=== PATIENT | male | born 1945 | race African-American/Black ===

== ENCOUNTER 2017-01-18 09:35 | Inpatient (IN) | payer MEDICARE, OTHER ==
--- NOTE | 2017-01-18 10:22 | ER Document Report ---
ED Dizziness/Weakness - General Chief Complaint: General Weakness Stated Complaint: WEAKNESS Notes: Patient was in his normal medical condition yesterday, but says he felt some difficulty going to sleep last night. He awakened about 4 AM to go to the bathroom and when he returned to bed, he felt weak and "drawn". He was able to return to sleep and awakened at 8 AM, but found he "couldn't move". He wasn't able to help himself sit up in bed and he wasn't able to stand. Patient has had previous four strokes. He has slow speech, but can function and is able to walk without assistance normally. He currently feels weak all over and not on just one side of his body. Patient denies any pains anywhere. Specifically, patient denies any headache, chest pain, or abdominal pain he's not had any vomiting or diarrhea. Has not been ill recently. Denies any UTI symptoms. Denies any cough or cold or chest congestion or shortness of breath. No fevers. Patient's was not present during his initial evaluation. After her arrival , she expressed concerned about patient's weakness, because this is not normal for him. Additionally, she says that his speech is very deliberate and somewhat slurred which is also not normal for him. Patient is not on any sedating medications such his meds for sleep, pain, etc. 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 Patient is blind in the right eye Review of Systems - Review of Systems Notes: REVIEW OF SYSTEMS: CONSTITUTIONAL : Denies fever. Complains of generalized weakness. EENT: Denies eye, ear, nose or mouth or throat pain or other symptoms. CARDIOVASCULAR: Denies chest pain. RESPIRATORY: Denies cough, chest congestion, or shortness of breath. GASTROINTESTINAL: Denies abdominal pain or nausea, vomiting, or diarrhea. GENITOURINARY: Denies difficulty or painful urinating, urinary frequency, blood in urine. MUSCULOSKELETAL: Denies back or neck pain. Denies joint pain or swelling. SKIN: Denies rash or skin lesions. NEUROLOGICAL: Denies LOC or altered mental status. Denies headache. Denies new or different sensory loss or motor deficits. ALL OTHER SYSTEMS REVIEWED AND NEGATIVE. Physical Exam - Vital signs Vitals: Resp 24 H 01/18/17 09:36 Interpretation: Normal, Hypertensive - Mild at 155/89.. No: Tachycardic, Hypoxic, Febrile - Notes Notes: PHYSICAL EXAMINATION: GENERAL: Well-appearing, in no acute distress. Vital signs essentially normal with only minimal hypertension. Answers questions very slowly and deliberately , but appropriately. Denies any pains anywhere. HEAD: Atraumatic, normocephalic. EYES: Patient is blind in right eye secondary to detached retina. NECK: Normal range of motion, supple. No carotid bruits heard. LUNGS: Breath sounds clear and equal bilaterally. HEART: Regular rate and rhythm without murmurs. ABDOMEN: Soft, nontender. No guarding or rebound. BACK: No tenderness throughout entire back. EXTREMITIES: Normal range of motion without pain. Moves all 4 extremities, although limited and weak. NEUROLOGICAL: Speech is slow and deliberate but understandable. Gait not tested. Can move all 4 extremities, although limited in week appearing. Awake , alert, and oriented x3. PSYCH: Normal mood, normal affect. SKIN: Warm, dry, no rashes. Course - Re-evaluation Re-evalutation: 01/18/17 12:06 Patient's labs are all essentially normal. CT scan of the brain is normal. Chest x-ray normal. No evidence of infection. Patient has persistent generalized weakness. I have spoken to the hospitalist, who will see the patient to consider admission for further evaluation. 01/18/17 12:39 Dr. Hallman will admit the patient to [facility] for observation. - Vital Signs Vital signs: Temp Pulse Resp BP Pulse Ox 21 H 140/101 H 100 01/18/17 12:31 01/18/17 12:31 01/18/17 12:31 - Laboratory Result Diagrams: 01/18/17 10:17 01/18/17 10:17 Laboratory results interpreted by de: 01/18/17 01/18/17 01/18/17 10:17 10:17 10:17 Hgb 11.8 L MCV 72 L MCH 22.4 L MCHC 31.2 L RDW 14.9 H Monocytes % 13.1 H APTT 22.0 L Sodium 136.9 L Glucose 285 H Direct Bilirubin 0.5 H Urine Protein Urine Glucose (UA) 01/18/17 11:22 Hgb MCV MCH MCHC RDW Monocytes % APTT Sodium Glucose Direct Bilirubin Urine Protein 30 H Urine Glucose (UA) >=500 H - Diagnostic Test Radiology reviewed: Image reviewed, Reports reviewed - CT scan of the brain reveals microvascular ischemia and atrophy. No acute injury. Radiology results interpreted by de: 01/18/17 12:05 Chest x-ray is normal. - EKG Interpretation by Tn EKG shows normal: Sinus rhythm - At 85. Rate: Normal Rhythm: NSR Additional EKG results interpreted by de: 01/18/17 10:31 EKG is normal without any acute changes. Discharge - Discharge Clinical Impression: Generalized weakness, Slurring of speech Admitting Provider: Hospitalist Unit Admitted: IMCU Referrals: LINDA CREWS MD [Primary Care Provider] - Follow up as needed
[2017-01-18 10:42] LABS: PROTHROMBIN TIME 12.2 SEC (11.4-15.4)
[2017-01-18 10:57] LABS: ABSOLUTE BASOPHILS # (AUTO) 0.1 10^3/uL (0.0-0.2); ABSOLUTE EOSINOPHILS # (AUTO) 0.2 10^3/uL (0.0-0.6); ABSOLUTE MONOCYTES (AUTO) 0.8 10^3/uL (0.1-1.4); ABSOLUTE NEUT (AUTO) 3.2 10^3/uL (1.7-8.2); BASOPHILS % (AUTO) 0.8 % (0-2); EOSINOPHILS % (AUTO) 2.5 % (0-6); HEMATOCRIT 37.9 % (37.9-51.0); HEMOGLOBIN 11.8 g/dL (13.5-17.0); HGB HCT DIFFERENCE -2.5; LYMPHOCYTES % (AUTO) 31.8 % (13-45); MEAN CORPUSCULAR HEMOGLOBIN 22.4 pg (27.0-33.4); MEAN CORPUSCULAR HGB CONC 31.2 g/dL (32.0-36.0); MEAN CORPUSCULAR VOLUME 72 fl (80-97); MONOCYTES % (AUTO) 13.1 % (3-13); RED BLOOD COUNT 5.28 10^6/uL (4.35-5.55); RED CELL DISTRIBUTION WIDTH 14.9 % (11.5-14.0); SEGMENTED NEUTROPHILS % (AUTO) 51.8 % (42-78); WHITE BLOOD COUNT 6.2 10^3/uL (4.0-10.5)
[2017-01-18 11:11] LABS: ALBUMIN 3.6 g/dL (3.5-5.0); ANION GAP 12 (5-19); BILIRUBIN,DIRECT 0.5 mg/dL (0.0-0.4); BILIRUBIN,TOTAL 0.8 mg/dL (0.2-1.3); BLOOD UREA NITROGEN 10 mg/dL (7-20); CALCIUM 9.2 mg/dL (8.4-10.2); CARBON DIOXIDE 24 mmol/L (22-30); CHLORIDE 101 mmol/L (98-107); CREATINE KINASE 148 U/L (55-170); CREATININE RESULT 0.63 mg/dL (0.52-1.25); GLUCOSE 285 mg/dL (75-110); SODIUM 136.9 mmol/L (137-145); TOTAL PROTEIN 7.5 g/dL (6.3-8.2)
[2017-01-18 11:12] LABS: CREATINE KINASE MB 1.51 ng/mL (<4.55)
[2017-01-18 11:13] LABS: TROPONIN I < 0.012 ng/mL
[2017-01-18 11:14] LABS: ALKALINE PHOSPHATASE 92 U/L (38-126); ASPARTATE AMINO TRANSFERASE 30 U/L (17-59)
[2017-01-18 11:15] LABS: ALANINE AMINOTRANSFERASE 29 U/L (21-72); POTASSIUM 3.9 mmol/L (3.6-5.0)
[2017-01-18 11:57] LABS: APPEARANCE,URINE CLEAR; BILIRUBIN,URINE NEGATIVE (NEGATIVE); GLUCOSE, URINE >=500 mg/dL (NEGATIVE); KETONES,URINE NEGATIVE (NEGATIVE); LEUKOCYTE ESTERASE,URINE NEGATIVE (NEGATIVE); NITRITE,URINE NEGATIVE (NEGATIVE); PROTEIN,URINE 30 mg/dL (NEGATIVE); URINE SPECIFIC GRAVITY 1.017; UROBILINOGEN,URINE NEGATIVE mg/dL (<2.0)
[2017-01-18 12:42] LABS: URINE BARBITURATES SCREEN NEGATIVE; URINE METHADONE SCREEN NEGATIVE; URINE OPIATES LOW NEGATIVE; URINE PHENCYCLIDINE SCREEN NEGATIVE
[2017-01-18] MEDS ORDERED: ONDANSETRON HCL INJ/PF 4 MG/2 ML SDV IV PRN (12:53)
[2017-01-18] MEDS ORDERED: ACETAMINOPHEN 325 MG TABLET PO PRN (12:53)
[2017-01-18] MEDS ORDERED: DEXTROSE 40% GEL 15 GM TUBE PO PRN ×2 (12:59)
[2017-01-18] MEDS ORDERED: DEXTROSE 50%-WATER 25 GM/50 ML DISP.SYRIN IV PRN ×2 (12:59)
[2017-01-18] MEDS ORDERED: GLUCAGON,HUMAN RECOMB 1 MG INJ IM PRN (12:59)
--- NOTE | 2017-01-18 13:13 | PDOC H&P ---
History of Present Illness Admission Date/PCP: 01/18/17 12:52 LINDA CREWS MD Patient complains of: Right-sided weakness History of Present Illness: KERRIE PECK is a 71 year old male with a history of previous CVA who reports he woke up about 4 AM this morning and went to the bathroom. He reported he felt weak on the right side slightly but went back to bed. When he woke up again at 8 AM he said he could not move his right side at all and he had some dysarthria. He woke up his who helped him sit on the edge the bed and had urinary incontinence. The patient reports that he has had improvement in the weakness on his right arm but it's still not back to normal. He continues with weakness in his right leg. He has had some dysarthria but denies any dysphagia. Denies any visual loss. 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 The patient also has some numbness in his right leg but not in the right arm. The patient reports his blood sugars have been good and he has not had any low blood sugars. Patient is on aspirin and Plavix and has been compliant with his medications. The patient reports that they've moved here from [place] about 5 months ago and are seeing Dr. barbara Crews. 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 Patient is blind in the right eye Social History Information Source: Patient Lives with: Spouse/Significant other Smoking Status: Former Smoker Frequency of Alcohol Use: Rare Hx Recreational Drug Use: No Drugs: None Hx Prescription Drug Abuse: No - Advance Directive Resuscitation Status: Full Code Surrogate healthcare decision maker:: His Family History Family History: Father at a 75. He is uncertain as to the cause of his . his mother is 105 years old and alive and healthy. Parental Family History Reviewed: Yes Children Family History Reviewed: No Sibling(s) Family History Reviewed.: No Medication/Allergy Allergies/Adverse Reactions: No Known Allergies Allergy (Unverified 01/18/17 09:52) Review of Systems Constitutional: ABSENT: chills, fever(s), headache(s), weight gain, weight loss Eyes: PRESENT: visual disturbances - No visual loss other than his baseline right eye blindness Ears: ABSENT: hearing changes Cardiovascular: ABSENT: chest pain, dyspnea on exertion, edema, orthropnea, palpitations Respiratory: ABSENT: cough, hemoptysis Gastrointestinal: ABSENT: abdominal pain, constipation, diarrhea, hematemesis, hematochezia, nausea, vomiting Genitourinary: ABSENT: dysuria, hematuria Musculoskeletal: ABSENT: joint swelling Integumentary: ABSENT: rash, wounds Neurological: PRESENT: as per HPI Psychiatric: ABSENT: anxiety, depression Endocrine: ABSENT: cold intolerance, heat intolerance, polydipsia, polyuria Hematologic/Lymphatic: ABSENT: easy bleeding, easy bruising Physical Exam Vital Signs: Temp Pulse Resp BP Pulse Ox 21 H 140/101 H 100 01/18/17 12:31 01/18/17 12:31 01/18/17 12:31 General appearance: PRESENT: no acute distress, obese Head exam: PRESENT: atraumatic, normocephalic Eye exam: PRESENT: conjunctiva pink, EOMI, PERRLA, other - Right eye is cloudy. ABSENT: scleral icterus Ear exam: PRESENT: normal external ear exam Mouth exam: PRESENT: moist, tongue midline Neck exam: ABSENT: carotid bruit, JVD, lymphadenopathy, thyromegaly Respiratory exam: PRESENT: clear to auscultation david. ABSENT: rales, rhonchi, wheezes Cardiovascular exam: PRESENT: RRR. ABSENT: diastolic murmur, rubs, systolic murmur GI/Abdominal exam: PRESENT: normal bowel sounds, soft. ABSENT: distended, guarding, mass, organolmegaly, rebound, tenderness Rectal exam: PRESENT: deferred Extremities exam: ABSENT: calf tenderness, clubbing, pedal edema Neurological exam: PRESENT: alert, awake, oriented to person, oriented to place , oriented to time, oriented to situation, CN II-XII grossly intact, motor sensory deficit - Strength is 4 out of 5 in the right upper and lower extremity. He also does have some mild dysarthria Psychiatric exam: PRESENT: appropriate affect Skin exam: PRESENT: dry, intact, warm. ABSENT: cyanosis, rash Results Impressions: Chest X-Ray 01/18/17 09:41 IMPRESSION: NO ACUTE RADIOGRAPHIC FINDING IN THE CHEST. Head CT 01/18/17 09:41 IMPRESSION: CHRONIC CHANGES OF ATROPHY AND MICROVASCULAR ISCHEMIA. NO ACUTE PROCESS. Assessment & Plan - Diagnosis (1) CVA (cerebral vascular accident) Is this a current diagnosis for this admission?: YesPlan: Clinically the patient has had a left sided CVA with right-sided weakness. He has improved from where he was this morning. Patient already is on aspirin and Plavix. We'll obtain an MRI, carotid Doppler and echocardiogram. We'll monitor on telemetry to make certain he is not having any cardiac arrhythmias. Will consult PT, OT, speech therapy. (2) Diabetes mellitus Is this a current diagnosis for this admission?: YesPlan: We'll hold his oral agents and cover with sliding scale insulin while hospitalized. (3) Hypertension Is this a current diagnosis for this admission?: YesPlan: Continue with Coreg and lisinopril. (4) Gout Is this a current diagnosis for this admission?: YesPlan: The patient takes colchicine when necessary. He has no evidence for gouty flare at this time. (5) Gastroesophageal reflux disease Is this a current diagnosis for this admission?: YesPlan: Patient takes Zantac at home. - Time Time Spent: 50 to 70 Minutes - Inpatient Certification Medical Necessity: Need Close Monitoring Due to Risk of Patient Decompensation, Need for Neurological Checks - Plan Summary Plan Summary: Patient continues with right-sided neurological deficits. Will admit as a regular inpatient as I anticipate he will be here greater than 2 midnights.
--- NOTE | 2017-01-18 15:11 | EKG REPORT ---
SEVERITY:- BORDERLINE ECG - SINUS RHYTHM PROBABLE LEFT ATRIAL ABNORMALITY : Confirmed by: Ramon Pollard MD 18-Jan-2017 15:11:21
[2017-01-18] MEDS ORDERED: ENOXAPARIN SODIUM INJ 40 MG/0.4 ML DISP.SYRIN SUBCUT ONE (17:00)
[2017-01-18] MEDS: INSULIN LISPRO 100 UNIT/ML 3 ML VIAL SUBCUT PRN ×2 (17:59→21:28)
[2017-01-18] MEDS: FAMOTIDINE 20 MG TABLET PO SCH (21:19)
[2017-01-18] MEDS: ATORVASTATIN CALCIUM 10 MG TABLET PO SCH (21:20)
[2017-01-18] MEDS: CARVEDILOL 12.5 MG TABLET PO SCH (21:20)
[2017-01-19 05:05] LABS: HEMOGLOBIN 11.3 g/dL (13.5-17.0); HGB HCT DIFFERENCE -1.1; MEAN CORPUSCULAR HEMOGLOBIN 22.9 pg (27.0-33.4); MEAN CORPUSCULAR HGB CONC 32.2 g/dL (32.0-36.0); MEAN CORPUSCULAR VOLUME 71 fl (80-97); RED BLOOD COUNT 4.92 10^6/uL (4.35-5.55); RED CELL DISTRIBUTION WIDTH 15.1 % (11.5-14.0); WHITE BLOOD COUNT 6.6 10^3/uL (4.0-10.5)
[2017-01-19 05:19] LABS: ANION GAP 8 (5-19); BLOOD UREA NITROGEN 10 mg/dL (7-20); CALCIUM 8.8 mg/dL (8.4-10.2); CARBON DIOXIDE 27 mmol/L (22-30); CHLORIDE 101 mmol/L (98-107); CHOLESTEROL 199.26 mg/dL (0-200); CREATININE RESULT 0.69 mg/dL (0.52-1.25); Direct HDL 47 mg/dL (>40); GLUCOSE 186 mg/dL (75-110); POTASSIUM 3.1 mmol/L (3.6-5.0); TRIGLYCERIDES 117 mg/dL (<150)
[2017-01-19 05:30] LABS: DIRECT LDL 120 mg/dL (<100)
[2017-01-19] MEDS: INSULIN LISPRO 100 UNIT/ML 3 ML VIAL SUBCUT PRN ×3 (08:34→22:13)
[2017-01-19] MEDS: ENOXAPARIN SODIUM INJ 40 MG/0.4 ML DISP.SYRIN SUBCUT SCH (08:34)
--- NOTE | 2017-01-19 09:54 | PDOC PROGRESS REPORT ---
Subjective Progress Note for:: 01/19/17 Subjective:: Complains of bilateral weakness today. Physical Exam Vital Signs: Temp Pulse Resp BP Pulse Ox 98.0 F 86 16 137/91 H 100 01/19/17 07:21 01/19/17 08:00 01/19/17 08:00 01/19/17 08:00 01/19/17 08:00 Intake & Output 01/18/17 01/19/17 01/20/17 06:59 06:59 06:59 Intake Total 390 Output Total 125 Balance 265 Weight 81.9 kg General appearance: PRESENT: no acute distress Eye exam: PRESENT: conjunctiva pink. ABSENT: scleral icterus Mouth exam: PRESENT: moist, tongue midline Neck exam: ABSENT: JVD Respiratory exam: PRESENT: clear to auscultation david. ABSENT: rales, rhonchi, wheezes Cardiovascular exam: PRESENT: RRR. ABSENT: diastolic murmur, rubs, systolic murmur GI/Abdominal exam: PRESENT: normal bowel sounds, soft. ABSENT: distended, guarding, mass, organolmegaly, rebound, tenderness Extremities exam: ABSENT: calf tenderness, clubbing, pedal edema Neurological exam: PRESENT: alert, awake, oriented to person, oriented to place , oriented to time, oriented to situation, CN II-XII grossly intact, motor sensory deficit - The patient's right lower extremity is 4 out of 5. 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 Psychiatric exam: PRESENT: appropriate affect Skin exam: PRESENT: dry, intact, warm. ABSENT: cyanosis, rash Results Laboratory Results: 01/19/17 04:50 01/19/17 04:50 01/19/17 01/19/17 04:50 04:50 WBC 6.6 RBC 4.92 Hgb 11.3 L Hct 35.0 L MCV 71 L MCH 22.9 L MCHC 32.2 RDW 15.1 H Plt Count 259 Sodium 136.0 L Potassium 3.1 L Chloride 101 Carbon Dioxide 27 Anion Gap 8 BUN 10 Creatinine 0.69 Est GFR ( Amer) > 60 Est GFR (Non-Af Amer) > 60 Glucose 186 H Calcium 8.8 Triglycerides 117 Cholesterol 199.26 LDL Cholesterol Direct 120 H VLDL Cholesterol 23.0 HDL Cholesterol 47 Impressions: Head MRI 01/18/17 00:00 IMPRESSION: 1. SMALL FOCUS OF RESTRICTED DIFFUSION WITHIN THE RIGHT CEREBRAL PEDUNCLE, CONSISTENT WITH ACUTE TO SUBACUTE ISCHEMIC EVENT. BACKGROUND ATROPHY AND CHRONIC MICRO-VASCULAR ISCHEMIC CHANGES. 2. PHTHISICAL RIGHT EYE. Chest X-Ray 01/18/17 09:41 IMPRESSION: NO ACUTE RADIOGRAPHIC FINDING IN THE CHEST. Head CT 01/18/17 09:41 IMPRESSION: CHRONIC CHANGES OF ATROPHY AND MICROVASCULAR ISCHEMIA. NO ACUTE PROCESS. Carotid Doppler Study 01/18/17 12:55 IMPRESSION: NO HEMODYNAMICALLY SIGNIFICANT STENOSIS. Assessment & Plan - Diagnosis (1) CVA (cerebral vascular accident) Is this a current diagnosis for this admission?: YesPlan: Clinically the patient has had a left sided CVA with right-sided weakness clinically. The patient however on MRI shows a right sided CVA. The patient's morning on exam does have some left salesperson burial needs weakness. We'll continue with the PT, OT, speech therapy. (2) Diabetes mellitus Is this a current diagnosis for this admission?: YesPlan: We'll hold his oral agents and cover with sliding scale insulin while hospitalized. (3) Hypertension Is this a current diagnosis for this admission?: YesPlan: Continue with Coreg and lisinopril. (4) Gout Is this a current diagnosis for this admission?: YesPlan: The patient takes colchicine when necessary. He has no evidence for gouty flare at this time. (5) Gastroesophageal reflux disease Is this a current diagnosis for this admission?: YesPlan: Patient takes Zantac at home. - Time Time Spent with patient: 25-34 minutes - Inpatient Certification Medical Necessity: Need Close Monitoring Due to Risk of Patient Decompensation - Plan Summary Plan Summary: We'll plan on transfer to rehabilitation when a bed becomes available.
[2017-01-19] MEDS: LISINOPRIL 10 MG TABLET PO SCH (10:52)
[2017-01-19] MEDS: POTASSI CL 20 MEQ/50 ML RIDER 50 ML IV SCH ×2 (10:52→12:15)
[2017-01-19] MEDS: FAMOTIDINE 20 MG TABLET PO SCH ×2 (10:52→21:50)
[2017-01-19] MEDS: CARVEDILOL 12.5 MG TABLET PO SCH ×2 (10:52→21:50)
[2017-01-19] MEDS: ASPIRIN 325 MG TABLET, ENT COATED PO SCH (10:52)
[2017-01-19] MEDS: CLOPIDOGREL BISULFATE 75 MG TABLET PO SCH (10:53)
[2017-01-19] MEDS: AMLODIPINE BESYLATE 10 MG TABLET PO SCH (10:53)
--- NOTE | 2017-01-19 19:17 | XCELERA REPORT ---
[address] [address] Transthoracic Echocardiogram Report Name: KERRIE PECK Age: 71 yrs Gender: Male : 1945 Patient Status: Inpatient Patient Location: \S\09\S\A Study Date: 01/18/2017 02:26 PM Height: 68 in Weight: 180 lb BSA: 2.0 m2 Procedure: A complete two-dimensional transthoracic echocardiogram was performed (2D, M-mode, spectral and color flow Doppler). The study was technically adequate with some images being suboptimal in quality. Reason For Study: cva Ordering Physician: VALERIANO HAIR Performed By: Za Arevalo Interpretation Summary The left ventricular ejection fraction is normal. There is mild concentric left ventricular hypertrophy. The left ventricle is grossly normal size. LV diastolic function could not be adequately assessed. Wall motion cannot be accurately commented on, but no definite regional wall motion abnormalities noted. The right ventricular systolic function is normal. The right atrium is normal in size The left atrial size is normal. There is no mitral valve stenosis. There is a trace amount of mitral regurgitation There is no aortic valve stenosis No aortic regurgitation is present. There is a trace or physiologic amount of tricuspid regurgitation Tricuspid regurgitation jet envelope not well defined to measure RV systolic pressure accurately. Minimal pericardial effusion. No definite cardiac source of CVA/TIA noted on this particular trans- thoracic study. Consider KEILY if clinically indicated. May consider mobile cardiac telemetry monitoring (MCT) for ruling out transient AFIB. MMode/2D Measurements \T\ Calculations RVDd: 2.9 cm LVIDd: 4.0 cm FS: 43.3 % Ao root diam: 2.5 cm IVSd: 1.1 cm LVIDs: 2.3 cm EDV(Teich): 70.9 ml LVPWd: 1.1 cm ESV(Teich): 17.8 ml Ao root area: 4.9 cm2 EF(Teich): 74.9 % LA dimension: 3.0 cm Doppler Measurements \T\ Calculations MV E max jerrell: MV P1/2t max jerrell: Ao V2 max: LV V1 max P.0 cm/sec 79.0 cm/sec 143.0 cm/sec 3.7 mmHg MV A max jerrell: MV P1/2t: 62.0 msec Ao max PG: LV V1 max: 95.8 cm/sec 8.2 mmHg 96.3 cm/sec MV E/A: 0.82 MVA(P1/2t): 3.5 cm2 MV dec slope: 373.0 cm/sec2 MV dec time: 0.20 sec PA V2 max: TR max jerrell: 83.9 cm/sec 234.8 cm/sec PA max PG: TR max P.1 mmHg 2.8 mmHg Left Ventricle The left ventricle is grossly normal size. There is mild concentric left ventricular hypertrophy. The left ventricular ejection fraction is normal. LV diastolic function could not be adequately assessed. Wall motion cannot be accurately commented on, but no definite regional wall motion abnormalities noted. Right Ventricle The right ventricle is grossly normal size. There is normal right ventricular wall thickness. The right ventricular systolic function is normal. Atria The right atrium is normal in size. The left atrial size is normal. Interarterial septum not well visualized and not well dopplered. Cannot comment on ASD/PFO presence. Mitral Valve The mitral valve is grossly normal. There is no mitral valve stenosis. There is a trace amount of mitral regurgitation. Aortic Valve The aortic valve is sclerotic, but shows no functional abnormality. There is no aortic valve stenosis. No aortic regurgitation is present. Tricuspid Valve The tricuspid valve is not well visualized, but is grossly normal. There is no tricuspid stenosis. There is a trace or physiologic amount of tricuspid regurgitation. Tricuspid regurgitation jet envelope not well defined to measure RV systolic pressure accurately. Pulmonic Valve The pulmonic valve is not well visualized. Great Vessels The aortic root is not well visualized but is probably normal size. The inferior vena cava was not well visualized. Effusions Minimal pericardial effusion. Incidental Findings No definite cardiac source of CVA/TIA noted on this particular trans- thoracic study. Consider KEILY if clinically indicated. May consider mobile cardiac telemetry monitoring (MCT) for ruling out transient AFIB. : VALERIANO HAIR > Jillian Jensen
[2017-01-19] MEDS: ATORVASTATIN CALCIUM 10 MG TABLET PO SCH (21:50)
[2017-01-20 05:28] LABS: ABSOLUTE EOSINOPHILS # (AUTO) 0.1 10^3/uL (0.0-0.6); ABSOLUTE LYMPHOCYTES (AUTO) 2.3 10^3/uL (0.5-4.7); ABSOLUTE MONOCYTES (AUTO) 0.8 10^3/uL (0.1-1.4); ABSOLUTE NEUT (AUTO) 2.8 10^3/uL (1.7-8.2); BASOPHILS % (AUTO) 0.5 % (0-2); EOSINOPHILS % (AUTO) 2.3 % (0-6); HEMATOCRIT 34.6 % (37.9-51.0); HEMOGLOBIN 11.2 g/dL (13.5-17.0); LYMPHOCYTES % (AUTO) 38.2 % (13-45); MEAN CORPUSCULAR HEMOGLOBIN 22.7 pg (27.0-33.4); MEAN CORPUSCULAR HGB CONC 32.4 g/dL (32.0-36.0); MEAN CORPUSCULAR VOLUME 70 fl (80-97); MONOCYTES % (AUTO) 12.6 % (3-13); RED BLOOD COUNT 4.94 10^6/uL (4.35-5.55); RED CELL DISTRIBUTION WIDTH 14.9 % (11.5-14.0); SEGMENTED NEUTROPHILS % (AUTO) 46.4 % (42-78); WHITE BLOOD COUNT 6.1 10^3/uL (4.0-10.5)
[2017-01-20 05:59] LABS: ANION GAP 11 (5-19); BLOOD UREA NITROGEN 10 mg/dL (7-20); CARBON DIOXIDE 25 mmol/L (22-30); CHLORIDE 102 mmol/L (98-107); CREATININE RESULT 0.69 mg/dL (0.52-1.25); GLUCOSE 167 mg/dL (75-110); POTASSIUM 3.3 mmol/L (3.6-5.0); SODIUM 137.7 mmol/L (137-145)
[2017-01-20] MEDS: ENOXAPARIN SODIUM INJ 40 MG/0.4 ML DISP.SYRIN SUBCUT SCH (07:55)
[2017-01-20] MEDS: INSULIN LISPRO 100 UNIT/ML 3 ML VIAL SUBCUT PRN ×4 (08:43→21:44)
[2017-01-20] MEDS ORDERED: ZOLPIDEM TARTRATE 5 MG TABLET PO PRN (09:10)
--- NOTE | 2017-01-20 09:13 | PDOC PROGRESS REPORT ---
Subjective Progress Note for:: 01/20/17 Subjective:: Complains of insomnia. Physical Exam Vital Signs: Temp Pulse Resp BP Pulse Ox 98.8 F 88 12 153/77 H 96 01/20/17 07:24 01/20/17 07:53 01/20/17 07:53 01/20/17 07:53 01/20/17 07:53 Intake & Output 01/19/17 01/20/17 01/21/17 06:59 06:59 06:59 Intake Total 390 1500 Output Total 125 Balance 265 1500 Weight 81.9 kg 81.1 kg General appearance: PRESENT: no acute distress Eye exam: PRESENT: conjunctiva pink. ABSENT: scleral icterus Ear exam: PRESENT: normal external ear exam Mouth exam: PRESENT: moist, tongue midline Neck exam: ABSENT: JVD Respiratory exam: PRESENT: clear to auscultation david. ABSENT: rales, rhonchi, wheezes Cardiovascular exam: PRESENT: RRR. ABSENT: diastolic murmur, rubs, systolic murmur GI/Abdominal exam: PRESENT: normal bowel sounds, soft. ABSENT: distended, guarding, mass, organolmegaly, rebound, tenderness Extremities exam: ABSENT: calf tenderness, clubbing, pedal edema Neurological exam: PRESENT: alert, awake, oriented to person, oriented to place , oriented to time, oriented to situation, CN II-XII grossly intact, motor sensory deficit - Strength is 4 out of 5 on the left upper and lower extremity. Psychiatric exam: PRESENT: appropriate affect Skin exam: PRESENT: dry, intact, warm. ABSENT: cyanosis, rash Results Laboratory Results: 01/20/17 05:12 01/20/17 05:12 01/20/17 01/20/17 05:12 05:12 WBC 6.1 RBC 4.94 Hgb 11.2 L Hct 34.6 L MCV 70 L MCH 22.7 L MCHC 32.4 RDW 14.9 H Plt Count 272 Seg Neutrophils % 46.4 Lymphocytes % 38.2 Monocytes % 12.6 Eosinophils % 2.3 Basophils % 0.5 Absolute Neutrophils 2.8 Absolute Lymphocytes 2.3 Absolute Monocytes 0.8 Absolute Eosinophils 0.1 Absolute Basophils 0.0 Sodium 137.7 Potassium 3.3 L Chloride 102 Carbon Dioxide 25 Anion Gap 11 BUN 10 Creatinine 0.69 Est GFR ( Amer) > 60 Est GFR (Non-Af Amer) > 60 Glucose 167 H Calcium 9.0 Impressions: Head MRI 01/18/17 00:00 IMPRESSION: 1. SMALL FOCUS OF RESTRICTED DIFFUSION WITHIN THE RIGHT CEREBRAL PEDUNCLE, CONSISTENT WITH ACUTE TO SUBACUTE ISCHEMIC EVENT. BACKGROUND ATROPHY AND CHRONIC MICRO-VASCULAR ISCHEMIC CHANGES. 2. PHTHISICAL RIGHT EYE. Chest X-Ray 01/18/17 09:41 IMPRESSION: NO ACUTE RADIOGRAPHIC FINDING IN THE CHEST. Head CT 01/18/17 09:41 IMPRESSION: CHRONIC CHANGES OF ATROPHY AND MICROVASCULAR ISCHEMIA. NO ACUTE PROCESS. Carotid Doppler Study 01/18/17 12:55 IMPRESSION: NO HEMODYNAMICALLY SIGNIFICANT STENOSIS. Assessment & Plan - Diagnosis (1) CVA (cerebral vascular accident) Is this a current diagnosis for this admission?: YesPlan: The patient has had an acute CVA. The patient has weakness on the left. Continue with aspirin and Plavix. We'll continue with the PT, OT, speech therapy. Will need a rehabilitation referral. (2) Diabetes mellitus Is this a current diagnosis for this admission?: YesPlan: We'll hold his oral agents and cover with sliding scale insulin while hospitalized. (3) Hypertension Is this a current diagnosis for this admission?: YesPlan: Continue with Coreg and lisinopril. (4) Gout Is this a current diagnosis for this admission?: YesPlan: The patient takes colchicine when necessary. He has no evidence for gouty flare at this time. (5) Gastroesophageal reflux disease Is this a current diagnosis for this admission?: YesPlan: Patient takes Zantac at home. - Time Time Spent with patient: 25-34 minutes - Inpatient Certification Medical Necessity: Need Close Monitoring Due to Risk of Patient Decompensation - Plan Summary Plan Summary: We'll plan on transfer to rehabilitation when a bed becomes available.
[2017-01-20] MEDS: AMLODIPINE BESYLATE 10 MG TABLET PO SCH (09:45)
[2017-01-20] MEDS: CARVEDILOL 12.5 MG TABLET PO SCH ×2 (09:45→21:44)
[2017-01-20] MEDS: ASPIRIN 325 MG TABLET, ENT COATED PO SCH (09:45)
[2017-01-20] MEDS: FAMOTIDINE 20 MG TABLET PO SCH ×2 (09:45→21:43)
[2017-01-20] MEDS: POTASSIUM CHLORIDE 10 MEQ TABLET.SA PO SCH ×2 (09:45→21:43)
[2017-01-20] MEDS: CLOPIDOGREL BISULFATE 75 MG TABLET PO SCH (09:46)
[2017-01-20] MEDS: LISINOPRIL 10 MG TABLET PO SCH (09:46)
[2017-01-20] MEDS ORDERED: MAGNESIUM HYDROXIDE SUSP 30 ML UDCUP PO PRN (13:48)
[2017-01-20] MEDS: ATORVASTATIN CALCIUM 10 MG TABLET PO SCH (21:44)
[2017-01-21 05:14] LABS: ANION GAP 9 (5-19); BLOOD UREA NITROGEN 14 mg/dL (7-20); CARBON DIOXIDE 25 mmol/L (22-30); CHLORIDE 104 mmol/L (98-107); CREATININE RESULT 0.75 mg/dL (0.52-1.25); GLUCOSE 141 mg/dL (75-110); POTASSIUM 3.8 mmol/L (3.6-5.0); SODIUM 137.6 mmol/L (137-145)
[2017-01-21] MEDS: ENOXAPARIN SODIUM INJ 40 MG/0.4 ML DISP.SYRIN SUBCUT SCH (07:42)
[2017-01-21] MEDS: LISINOPRIL 10 MG TABLET PO SCH (09:32)
[2017-01-21] MEDS: CLOPIDOGREL BISULFATE 75 MG TABLET PO SCH (09:32)
[2017-01-21] MEDS: POTASSIUM CHLORIDE 10 MEQ TABLET.SA PO SCH (09:33)
[2017-01-21] MEDS: CARVEDILOL 12.5 MG TABLET PO SCH (09:33)
[2017-01-21] MEDS: FAMOTIDINE 20 MG TABLET PO SCH (09:33)
[2017-01-21] MEDS: ASPIRIN 325 MG TABLET, ENT COATED PO SCH (09:33)
[2017-01-21] MEDS: AMLODIPINE BESYLATE 10 MG TABLET PO SCH (09:33)
[2017-01-21] MEDS: INSULIN LISPRO 100 UNIT/ML 3 ML VIAL SUBCUT PRN ×2 (12:23→17:06)
--- NOTE | 2017-01-21 13:43 | PDOC TRANSFER SUMMARY ---
General - Admit/Disc Date/PCP Admission Date/Primary Care Provider: 01/18/17 12:53 LINDA CREWS MD Discharge Date: 01/21/17 - Discharge Diagnosis (1) CVA (cerebral vascular accident) Is this a current diagnosis for this admission?: YesSummary: With left-sided weakness (2) Diabetes mellitus Is this a current diagnosis for this admission?: Yes (3) Hypertension Is this a current diagnosis for this admission?: Yes (4) Gout Is this a current diagnosis for this admission?: Yes (5) Gastroesophageal reflux disease Is this a current diagnosis for this admission?: Yes - Additional Information Resuscitation Status: Full Code Discharge Diet: Cardiac, Diabetic Discharge Activity: Activity As Tolerated Home Medications: Amlodipine Besylate [Norvasc 10 mg Tablet] 10 mg PO DAILY 01/18/17 Aspirin [Aspirin 325 mg Tablet] 325 mg PO DAILY 01/18/17 Atorvastatin Calcium [Lipitor 10 mg Tablet] 10 mg PO DAILY 01/18/17 Carvedilol [Coreg 12.5 mg Tablet] 12.5 mg PO Q12 01/18/17 Clopidogrel Bisulfate [Plavix 75 mg Tablet] 75 mg PO DAILY 01/18/17 Colchicine [Colchicine 0.6 mg Tablet] 0.6 mg PO ASDIR PRN 01/18/17 Glipizide [Glipizide ER] 5 mg PO DAILY 01/18/17 Lisinopril [Prinivil 40 mg Tablet] 40 mg PO DAILY 01/18/17 Metformin HCl [Glucophage] 1,000 mg PO WBRKFST 01/18/17 Metformin HCl [Glucophage] 1,000 mg PO WSUPPER 01/18/17 Metformin HCl [Glucophage] 500 mg PO WLUNCH 01/18/17 Ranitidine HCl [Zantac 150 mg Tablet] 150 mg PO DAILY 01/18/17 Insulin Lispro [Humalog Insulin (Lispro) 100 unit/mL] 0 - 12 unit SUBCUT ACHSP PRN unit 01/21/17 History of Present Illness Admission Date/PCP: 01/18/17 12:53 LINDA CREWS MD History of Present Illness: KERRIE PECK is a 71 year old male with a history of previous CVA who reports he woke up about 4 AM this morning and went to the bathroom. He reported he felt weak on the right side slightly but went back to bed. When he woke up again at 8 AM he said he could not move his right side at all and he had some dysarthria. He woke up his who helped him sit on the edge the bed and had urinary incontinence. The patient reports that he has had improvement in the weakness on his right arm but it's still not back to normal. He continues with weakness in his right leg. He has had some dysarthria but denies any dysphagia. Denies any visual loss. 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 The patient also has some numbness in his right leg but not in the right arm. The patient reports his blood sugars have been good and he has not had any low blood sugars. Patient is on aspirin and Plavix and has been compliant with his medications. The patient reports that they've moved here from [place] about 5 months ago and are seeing Dr. barbara Crews. Hospital Course Hospital Course: 71-year-old gentleman who presented with weakness. The patient initially had some right vba developer strength weakness but developed left upper and lower extremity weakness. The patient has had a previous CVA. The patient had a MRI which showed an acute right MCA infarct. Patient had carotid Dopplers which showed no evidence for stenosis and had an echocardiogram which showed no evidence for thrombus. The patient was already on aspirin and Plavix and he was continued on with those. The patient was started on physical therapy, occupational therapy, speech therapy. He continues with weakness and it's felt that he would benefit from short-term rehabilitation at a group home facility. Patient will be transferred to [facility] today. Patient's other medical problems were stable during this hospitalization. Physical Exam Vital Signs: Temp Pulse Resp BP Pulse Ox 98.7 F 95 20 146/70 H 97 01/21/17 11:06 01/21/17 12:00 01/21/17 12:00 01/21/17 12:55 01/21/17 12:00 Intake & Output 01/20/17 01/21/17 01/22/17 06:59 06:59 06:59 Intake Total 1500 481 355 Balance 1500 481 355 Weight 81.1 kg 82.6 kg General appearance: PRESENT: no acute distress Eye exam: PRESENT: conjunctiva pink. ABSENT: scleral icterus Mouth exam: PRESENT: moist, tongue midline Neck exam: ABSENT: carotid bruit, JVD, lymphadenopathy, thyromegaly Respiratory exam: PRESENT: clear to auscultation david. ABSENT: rales, rhonchi, wheezes Cardiovascular exam: PRESENT: RRR. ABSENT: diastolic murmur, rubs, systolic murmur Pulses: PRESENT: normal dorsalis pedis pul Vascular exam: PRESENT: normal capillary refill GI/Abdominal exam: PRESENT: normal bowel sounds, soft. ABSENT: distended, guarding, mass, organolmegaly, rebound, tenderness Rectal exam: PRESENT: deferred Extremities exam: ABSENT: calf tenderness, clubbing, pedal edema Neurological exam: PRESENT: alert, awake, oriented to person, oriented to place , oriented to time, oriented to situation, CN II-XII grossly intact, motor sensory deficit - 4-5 strength in the left upper and lower extremity. Psychiatric exam: PRESENT: appropriate affect Skin exam: PRESENT: dry, intact, warm. ABSENT: cyanosis, rash Results Laboratory Results: 01/20/17 05:12 01/21/17 04:01 01/21/17 04:01 Sodium 137.6 Potassium 3.8 Chloride 104 Carbon Dioxide 25 Anion Gap 9 BUN 14 Creatinine 0.75 Est GFR ( Amer) > 60 Est GFR (Non-Af Amer) > 60 Glucose 141 H Calcium 9.0 Impressions: Head MRI 01/18/17 00:00 IMPRESSION: 1. SMALL FOCUS OF RESTRICTED DIFFUSION WITHIN THE RIGHT CEREBRAL PEDUNCLE, CONSISTENT WITH ACUTE TO SUBACUTE ISCHEMIC EVENT. BACKGROUND ATROPHY AND CHRONIC MICRO-VASCULAR ISCHEMIC CHANGES. 2. PHTHISICAL RIGHT EYE. Chest X-Ray 01/18/17 09:41 IMPRESSION: NO ACUTE RADIOGRAPHIC FINDING IN THE CHEST. Head CT 01/18/17 09:41 IMPRESSION: CHRONIC CHANGES OF ATROPHY AND MICROVASCULAR ISCHEMIA. NO ACUTE PROCESS. Carotid Doppler Study 01/18/17 12:55 IMPRESSION: NO HEMODYNAMICALLY SIGNIFICANT STENOSIS. Transfer Plan - Disposition Transfer Plan: Transfer to [facility] for [facility]-term rehabilitation. - Time Spent with Patient Time spent with patient: Greater than 30 Minutes Qualifiers PATEINT BEING DISCHARGED WITH ANY OF THE FOLLOWING DIAGNOSIS?: Stroke Stroke Pt being discharged on Anti-thrombolytic therapy?: Yes Stroke Pt being discharged on Anti-coagulation therapy?: Yes Stroke Pt being discharged on Statins?: Yes Plan Discharge Plan: Transfer to [facility] for rehabilitation Time Spent: Greater than 30 Minutes
[2017-01-21 16:14] VITALS: BP 153/84
== END 2017-01-21 19:00 | DRG 65 ==
LOC: ER 09:35 → EH 12:52 → UNDOADMIN 12:52 → EH 12:53 → 3W 16:23
PROVIDERS: ADMIT Family Medicine; ATTEND Family Medicine
DX: I63.9 Cerebral infarction, unspecified (principal); G81.94 Hemiplegia, unspecified affecting left nondominant side; E11.9 Type 2 diabetes mellitus without complications; I10 Essential (primary) hypertension; M10.9 Gout, unspecified; K21.9 Gastro-esophageal reflux disease without esophagitis; H54.41 Blindness, right eye, normal vision left eye; E78.5 Hyperlipidemia, unspecified; G47.00 Insomnia, unspecified; R47.81 Slurred speech; Z79.82 Long term (current) use of aspirin; Z79.02 Long term (current) use of antithrombotics/antiplatelets; Z79.899 Other long term (current) drug therapy
CPT/HCPCS: 36415; 70450; 70551; 71010; 80048; 80053; 80061; 80307; 81001; 82550; 82553; 82962; 84484; 85025; 85027; 85610; 85730; 93005; 93010; 93306; 93880; 99285; G8978-GP; G8979-GP; G8987-GO; G8988-GO; G8999-GN; G9158-GN; G9186-GN; J1650; J1815; J3480; J3490

== ENCOUNTER → 2017-12-11 | Outpatient (CLI) | payer MEDICARE, OTHER ==
--- NOTE | 2017-12-11 15:42 | RADIOLOGY REPORT (SQ) ---
EXAM DESCRIPTION: CT CHEST WITHOUT COMPLETED DATE/TIME: 12/11/2017 2:58 pm REASON FOR STUDY: CHRONIC COUGH/PULMONARY NODULE R05 COUGH COMPARISON: None. TECHNIQUE: CT scan performed of the chest without intravenous contrast. Images reviewed with lung, soft tissue and bone windows. Reconstructed coronal and sagittal MPR images reviewed. All images st ored on PACS. All CT scanners at this facility use dose modulation, iterative reconstruction, and/or weight based d osing when appropriate to reduce radiation dose to as low as reasonably achievable (ALARA). [facility]: Dose Right [facility]: CareDose [facility]: Dose Right [facility]: Teradose 4D [facility]: Smart Sevar Consult RADIATION DOSE: CT Rad equipment meets quality standard of care and radiation dose reduction techniq ues were employed. CTDIvol: 14.4 mGy. DLP: 497 mGy-cm. mGy. LIMITATIONS: No technical limitations. FINDINGS: LUNGS AND PLEURA: No masses, infiltrates, pneumothorax. No pleural effusions, calcificati ons. HILAR AND MEDIASTINAL STRUCTURES: No identified masses or abnormal nodes. No obvious aneurysm. HEART AND VASCULAR STRUCTURES: Cardiomegaly. No pericardial effusion. UPPER ABDOMEN: No significant findings. Limited exam. THYROID AND OTHER SOFT TISSUES: No masses. No adenopathy. BONES: No significant finding. HARDWARE: None in the chest. OTHER: No other significant findings. IMPRESSION: No acute findings in the chest. TECHNICAL DOCUMENTATION: JOB ID: [id number] Quality ID # [id number]: Final reports with documentation of one or more dose reduction techniques (e.g., Au tomated exposure control, adjustment of the mA and/or kV according to patient size, use of iterative reconstruction technique) 2010 [employer]- All Rights Reserved Reading location - IP/workstation name: [email or web address]
== END ==
LOC: RAD 16:24
PROVIDERS: ATTEND Internal Medicine Critical Care Medicine
DX: R05 Cough (principal); R91.1 Solitary pulmonary nodule; Z87.891 Personal history of nicotine dependence
CPT/HCPCS: 71250